=== PATIENT | female | born 1980 | race Caucasian/White ===

== ENCOUNTER 2017-08-18 23:06 | Emergency (ER) | payer SELFPAY ==
[2017-08-18 23:12] VITALS: BP 128/78; PULSE 89; TEMP 98.2; BMI 51.7
[2017-08-18] MEDS ORDERED: LIDOCAINE VISCOUS 2% ORAL/TOP 20 ML UNIT-DOSE CUP MM ONE (23:32)
[2017-08-18] MEDS ORDERED: LIDOCAINE VISCOUS 2% ORAL/TOP 20 ML UNIT-DOSE CUP ONE (23:40)
[2017-08-19] MEDS ORDERED: AZITHROMYCIN 250 MG TABLET PO ONE (00:39)
[2017-08-19] MEDS ORDERED: AZITHROMYCIN 250 MG TABLET ONE (00:51)
--- NOTE | 2017-08-19 00:54 | PDOC ---
History of Present Illness - General Chief Complaint: Cold Symptoms Stated Complaint: PAIN/ COUGHING Time Seen by Provider: 08/18/17 23:25 History Source: Patient Exam Limitations: No Limitations - History of Present Illness Initial Comments: 08/19/17 00:57 36yo Female patient with no significant past medical history presents to ED c/o 1 week of runny nose, cough, sore throat w/ difficulty swallowing. Patient reports no fever, but has used Tylenol for pain with minimal relief. Patient denies any other complaints at this time. Timing/Duration: reports: week Severity: reports: severe Episode Description: See HPI Possible Cause: Yes: no prior episodes Modifying Factors: worse with: activity, albuterol inhaler, albuterol nebulizer , antibiotics, coughing, lying down, oxygen, rest, other Associated Symptoms: reports: sore throat. denies: denies symptoms, chest pain/ soreness, cough, dizziness, earache, facial pain, fever/chills, headache, lightheadedness, muscle aches, nasal congestion, nasal drainage, shortness of breath, sinus infection, wheezing, other Past History - Travel Traveled outside of the country in the last 30 days: No Close contact w/someone who was outside of country & ill: No - Past Medical History Allergies/Adverse Reactions: Allergies Allergy/AdvReac Type Severity Reaction Status Date / Time No Known Allergies Allergy Verified 08/18/17 23:08 Home Medications: Ambulatory Orders Acetaminophen [Tylenol] 650 mg PO QID 08/18/17 Azithromycin [Zithromax -] 250 mg PO DAILY #4 tablet 08/19/17 Methylprednisolone [Medrol Dose Skinny] 4 mg PO ASDIR #21 tablet 08/19/17 COPD: No - Suicide/Smoking/Psychosocial Hx Smoking History: Never smoked Respiratory Specific PMHX - Complaint Specific PMHX Angina: No Bronchitis: No Pneumonia: No Pulmonary Embolus: No TB (Tuberculosis): No Review of Systems - Review of Systems Able to Perform ROS?: Yes Is the patient limited Nigerien proficient: No Constitutional: No: Chills, Fever HEENTM: Yes: Nose Congestion, Throat Pain Respiratory: Yes: Cough. No: Shortness of Breath, Wheezing Cardiac (ROS): No: Chest Pain, Syncope, Chest Tightness ABD/GI: No: Constipated, Diarrhea, Nausea, Poor Appetite, Poor Fluid Intake, Vomiting All Other Systems: Reviewed and Negative *Physical Exam - Vital Signs Last Vital Signs Temp Pulse Resp BP Pulse Ox 98.2 F 89 18 128/78 99 08/18/17 23:10 08/18/17 23:10 08/18/17 23:10 08/18/17 23:10 08/18/17 23:10 - Physical Exam General Appearance: Yes: Nourished, Appropriately Dressed. No: Apparent Distress, Mild Distress, Moderate Distress, Severe Distress HEENT: positive: EOMI, SELENE, Normal ENT Inspection, Normal Voice, Symmetrical, TMs Normal, Pharynx Normal. negative: Pharyngeal Erythema, Tonsillar Erythema, Nasal Congestion, Rhinorrhea, Sinus Tenderness, TM Bulging, TM Dull, TM Erythema Neck: positive: Trachea midline, Normal Thyroid, Supple. negative: Rigid, Stridor, Lymphadenopathy (R), Lymphadenopathy (L), Tender lateral, Tender midline Respiratory/Chest: positive: Lungs Clear, Normal Breath Sounds. negative: Chest Tender, Respiratory Distress, Accessory Muscle Use, Labored Respiration, Rapid RR, Rhonchi, Stridor, Wheezing Cardiovascular: positive: Regular Rhythm, Regular Rate Musculoskeletal: positive: Normal Inspection. negative: CVA Tenderness Extremity: positive: Normal Capillary Refill, Normal Inspection, Normal Range of Motion. negative: Pedal Edema, Swelling, Calf Tenderness, Erythema, Inflammation Integumentary: positive: Normal Color, Dry, Warm Neurologic: positive: line cleaner II-XII NML intact, Fully Oriented, Alert, Normal Mood/ Affect, Normal Response, Motor Strength 5/5 ED Treatment Course - ADDITIONAL ORDERS Additional order review: 08/18/17 23:45 Group A Strep Rapid Antigen - Final Throat - Medications Given in the ED: ED Medications Discontinued Medications Generic Name Dose Route Start Last Admin Trade Name Freq PRN Reason Stop Dose Admin Lidocaine HCl 10 ml 08/18/17 23:32 08/18/17 23:42 Xylocaine 2% Viscous Oral - MM 08/18/17 23:33 10 ml ONCE ONE Administration *DC/Admit/Observation/Transfer Diagnosis at time of Disposition: Pharyngitis Qualifiers: Pharyngitis/tonsillitis etiology: other specified organisms Qualified Code(s): J02.8 - Acute pharyngitis due to other specified organisms - Discharge Dispostion Disposition: HOME Condition at time of disposition: Stable Admit: No - Prescriptions Prescriptions: Azithromycin [Zithromax -] 250 mg PO DAILY #4 tablet Methylprednisolone [Medrol Dose Skinny] 4 mg PO ASDIR #21 tablet - Referrals - Patient Instructions Printed Discharge Instructions: DI for Viral Pharyngitis Additional Instructions: Follow up with your primary care provider this week for further evaluation. Take medications as prescribed, as directed. Return if symptoms worsen or any concerns for further evaluation. Try throat Lozenges for pain as well. Print Language: ROMANSH - Post Discharge Activity
== END 2017-08-19 00:58 | disposition home or self-care (01) ==
LOC: JER 23:06
DX: J02.9 Acute pharyngitis, unspecified (principal)
CPT/HCPCS: 87070; 87430; 99281-25